=== PATIENT | female | born 1945 | race Caucasian/White ===

== ENCOUNTER 2023-02-06 23:44 | Inpatient (IN) | payer MEDICARE, OTHER ==
[2023-02-07 01:22] LABS: #Eosinphils 0.1 thou/uL (0.0-0.7); #Monocytes 0.9 thou/uL (0.11-0.59); #Neutrophils 4.8 thou/uL (1.40-6.50); %Basophils 0.4 % (0.0-1.0); %Eosinophils 0.8 % (0.0-10.0); %Lymphocytes 26.5 % (21.0-51.0); %Monocytes 10.9 % (0.0-10.0); %Neutrophils 60.6 % (42.0-75.0); Hematocrit 39.9 % (36.0-47.0); Hemoglobin 12.7 g/dL (12.0-16.0); Mean Corpuscular HGB CONC 31.8 g/dL (32.0-36.0); Mean Corpuscular Hemoglobin 30.2 pg (27.0-31.0); Mean Corpuscular Volume 94.8 fl (78.0-98.0); Mean Platelet Volume 10.1 fL (7.4-10.4); Platelet Count 256 10x3/uL (130-400); RBC Distribution Width 13.6 % (11.5-14.5); Red Blood Cell (RBC) Count 4.21 mill/uL (4.20-5.40); White Blood Cell (WBC) Count 7.9 10x3/uL (4.8-10.8)
[2023-02-07 01:35] LABS: Prothrombin Time 13.7 sec (12.0-14.7)
[2023-02-07 01:36] LABS: PTT 26.9 sec (22.9-36.1)
[2023-02-07 01:49] LABS: ALT (SGPT) 24 U/L (8-55); AST (SGOT) 30 U/L (5-34); Albumin 3.8 g/dL (3.4-4.8); Alkaline Phosphatase 95 U/L (40-110); Anion Gap 14 mmol/L (10-20); BUN (Urea Nitrogen) 21 mg/dL (9.8-20.1); Bilirubin, Total 0.2 mg/dL (0.2-1.2); Calc. Creatinine Clearance 0 mL/min (70-130); Calcium 8.8 mg/dL (7.8-10.44); Carbon Dioxide 22 mmol/L (23-31); Chloride 106 mmol/L (98-107); Estimated GFR 84; Globulin 2.6 g/dL (2.4-3.5); Glucose 216 mg/dL (83-110); Lipase 534 U/L (8-78); Potassium 4.1 mmol/L (3.5-5.1); Protein, Total 6.4 g/dL (5.8-8.1); Sodium 138 mmol/L (136-145); Troponin I Less than 0.010 ng/mL (< 0.028)
[2023-02-07] MEDS ORDERED: fentaNYL 50 mcg/mL 1 mL Vial ONE (02:11)
[2023-02-07 02:21] LABS: Bacteria/HPF 4+ HPF (None Seen); Bilirubin Negative (Negative); Blood, Urine Negative (Negative); CAUTI Indications for Culture Alt mental st,lethar; Clarity Turbid (Clear); Glucose, Urine (Dipstick) Normal (Negative); Ketone, Urine 10 mg/dL (Negative); Leukocyte 75 Leu/uL (Negative); Nitrite Negative (Negative); Protein, Urine (Dipstick) 20 mg/dL (Neg-Trace); RBC/HPF 0-3 HPF (0-3); Specific Gravity, Urine 1.034 (1.002-1.036); Squamous Epithelial 0-3 HPF (0-3); WBC/HPF 21-50 HPF (0-3)
[2023-02-07 02:30] LABS: Urine Culture Reflex Yes Yes
[2023-02-07] MEDS ORDERED: Acetaminophen 325 MG TAB PO PRN (03:08)
[2023-02-07] MEDS ORDERED: hydrALAZINE 20 MG/ML VIAL SLOW IVP PRN (03:08)
[2023-02-07] MEDS ORDERED: Ondansetron ODT 4 MG TAB PO PRN (03:08)
[2023-02-07] MEDS ORDERED: Ondansetron PF 4 MG/2 ML Vial IVP PRN (03:08)
[2023-02-07] MEDS ORDERED: Acetaminophen 650 MG Suppository PR PRN (03:08)
[2023-02-07] MEDS ORDERED: Docusate 100 MG CAP PO PRN (03:13)
[2023-02-07] MEDS ORDERED: Aspirin Chewable 81 MG TAB PO SCH (03:30)
[2023-02-07] MEDS ORDERED: Acetaminophen/Codeine 30-300mg Tablet ONE ×2 (05:37→12:55)
[2023-02-07] MEDS: Acetaminophen/Codeine 30-300mg Tablet PO PRN ×3 (05:42→19:59)
[2023-02-07 08:49] LABS: Anion Gap 15 mmol/L (10-20); BUN (Urea Nitrogen) 18 mg/dL (9.8-20.1); Calc. Creatinine Clearance 70 mL/min (70-130); Calcium 8.8 mg/dL (7.8-10.44); Carbon Dioxide 21 mmol/L (23-31); Chloride 108 mmol/L (98-107); Estimated GFR 90; Glucose 204 mg/dL (83-110); Potassium 4.5 mmol/L (3.5-5.1); Sodium 139 mmol/L (136-145)
[2023-02-07] MEDS ORDERED: Enoxaparin 40 MG (0.4 mL) SYRINGE SC SCH (09:00)
[2023-02-07] MEDS ORDERED: Divalproex Sodium 250 MG (DR) TAB PO SCH (09:00)
[2023-02-07] MEDS ORDERED: Aspirin 81 mg Enteric Coated Tablet PO SCH (09:00)
[2023-02-07 10:38] LABS: #Basophils 0.1 thou/uL (0.0-0.2); #Eosinphils 0.1 thou/uL (0.0-0.7); #Monocytes 1.1 thou/uL (0.11-0.59); #Neutrophils 5.2 thou/uL (1.40-6.50); %Basophils 0.5 % (0.0-1.0); %Eosinophils 0.8 % (0.0-10.0); %Lymphocytes 30.1 % (21.0-51.0); %Monocytes 11.7 % (0.0-10.0); %Neutrophils 56.4 % (42.0-75.0); Hematocrit 42.3 % (36.0-47.0); Hemoglobin 13.4 g/dL (12.0-16.0); Mean Corpuscular HGB CONC 31.7 g/dL (32.0-36.0); Mean Corpuscular Hemoglobin 30.1 pg (27.0-31.0); Mean Corpuscular Volume 95.1 fl (78.0-98.0); Mean Platelet Volume 9.5 fL (7.4-10.4); Platelet Count 277 10x3/uL (130-400); RBC Distribution Width 13.5 % (11.5-14.5); Red Blood Cell (RBC) Count 4.45 mill/uL (4.20-5.40); White Blood Cell (WBC) Count 9.2 10x3/uL (4.8-10.8)
[2023-02-07] MEDS: Divalproex Sodium 250 MG ER.TAB PO SCH ×2 (10:44→19:59)
[2023-02-07] MEDS ORDERED: Amlodipine 5 MG TAB PO SCH (11:45)
[2023-02-07] MEDS ORDERED: Amlodipine 5 MG TAB ONE (12:55)
[2023-02-07 19:01] VITALS: BMI 25.3
[2023-02-07] MEDS ORDERED: Atorvastatin Calcium 20 MG TAB PO SCH (21:00)
[2023-02-07] MEDS ORDERED: Melatonin 3 MG TAB PO PRN ×2 (22:53→23:00)
[2023-02-07] MEDS: Albuterol 200 PUFF (6.7GM INHALER) INH PRN (22:57)
[2023-02-07] MEDS ORDERED: Cyclobenzaprine 10 MG TAB PO SCH (23:30)
[2023-02-08] MEDS: Acetaminophen/Codeine 30-300mg Tablet PO PRN (02:37)
[2023-02-08] MEDS: Albuterol 200 PUFF (6.7GM INHALER) INH PRN (02:40)
[2023-02-08 04:35] LABS: #Eosinphils 0.1 thou/uL (0.0-0.7); #Monocytes 0.8 thou/uL (0.11-0.59); #Neutrophils 3.6 thou/uL (1.40-6.50); %Basophils 0.4 % (0.0-1.0); %Eosinophils 0.7 % (0.0-10.0); %Lymphocytes 35.4 % (21.0-51.0); %Monocytes 11.1 % (0.0-10.0); %Neutrophils 51.8 % (42.0-75.0); Hematocrit 43.8 % (36.0-47.0); Hemoglobin 13.1 g/dL (12.0-16.0); Mean Corpuscular HGB CONC 29.9 g/dL (32.0-36.0); Mean Corpuscular Hemoglobin 29.8 pg (27.0-31.0); Mean Platelet Volume 9.9 fL (7.4-10.4); Platelet Count 222 10x3/uL (130-400); RBC Distribution Width 13.5 % (11.5-14.5); White Blood Cell (WBC) Count 6.9 10x3/uL (4.8-10.8)
[2023-02-08 04:47] LABS: Mean Corpuscular Volume 99.5 fl (78.0-98.0)
[2023-02-08 04:56] LABS: Anion Gap 14 mmol/L (10-20); BUN (Urea Nitrogen) 11 mg/dL (9.8-20.1); Calc. Creatinine Clearance 74 mL/min (70-130); Calcium 8.8 mg/dL (7.8-10.44); Carbon Dioxide 20 mmol/L (23-31); Chloride 107 mmol/L (98-107); Estimated GFR 90; Glucose 160 mg/dL (83-110); Potassium 4.1 mmol/L (3.5-5.1); Sodium 137 mmol/L (136-145)
[2023-02-08] MEDS ORDERED: Amlodipine 5 MG TAB PO SCH (09:00)
[2023-02-08] MEDS: Divalproex Sodium 250 MG ER.TAB PO SCH (10:11)
[2023-02-08 16:11] VITALS: BP 137/80; TEMP 97.7
[2023-02-09] MEDS ORDERED: Aspirin Chewable 81 MG TAB PO SCH (09:00)
== END 2023-02-08 18:26 | disposition home or self-care (01) | DRG 100 ==
LOC: ERS 23:44 → ERHOLD 02-07 02:33 → 2SE 02-07 17:21
PROVIDERS: ADMIT Student in an Organized Health Care Education/Training Program; ATTEND Nurse Practitioner Family
DX: G40.909 Epilepsy, unspecified, not intractable, without status epilepticus (principal); G93.41 Metabolic encephalopathy; N39.0 Urinary tract infection, site not specified; C25.9 Malignant neoplasm of pancreas, unspecified; C78.7 Secondary malignant neoplasm of liver and intrahepatic bile duct; J96.10 Chronic respiratory failure, unspecified whether with hypoxia or hypercapnia; E11.9 Type 2 diabetes mellitus without complications; J44.9 Chronic obstructive pulmonary disease, unspecified; Z86.73 Personal history of transient ischemic attack (TIA), and cerebral infarction without residual deficits
CPT/HCPCS: 36415; 36416; 70450; 70553; 80048; 80053; 80164; 81001; 82140; 82607; 83690; 83735; 83880; 84146; 84443; 84484; 85025; 85610; 85730; 87077; 87086; 87186; 93005; 93306; 93880; 95816; 95819; J3010

== ENCOUNTER 2023-03-27 07:32 | Outpatient (CLI) | payer MEDICARE, OTHER ==
[2023-03-27] MEDS ORDERED: Iopamidol 370 76% 100 ML VIAL ONE (09:01)
== END 2023-03-27 07:33 | disposition home or self-care (01) ==
LOC: NM 07:32
PROVIDERS: ATTEND Internal Medicine Hematology & Oncology
DX: C80.1 Malignant (primary) neoplasm, unspecified (principal); C79.51 Secondary malignant neoplasm of bone; C78.7 Secondary malignant neoplasm of liver and intrahepatic bile duct; R91.8 Other nonspecific abnormal finding of lung field; R59.0 Localized enlarged lymph nodes; E27.8 Other specified disorders of adrenal gland; N28.89 Other specified disorders of kidney and ureter; M89.9 Disorder of bone, unspecified; S22.019A Unspecified fracture of first thoracic vertebra, initial encounter for closed fracture
CPT/HCPCS: 71260; 74177; 78306; 82565; A9503; A9540; J1642; Q9967